=== PATIENT | female | born 1960 | race Caucasian/White ===

== ENCOUNTER 2019-03-14 17:23 | Emergency (ER) | payer MEDICAID ==
[~2019-03-14] VITALS: Ht 170.2 cm; Wt 96.6 kg
[~2019-03-14 17:23] MED LIST: AMLO10TA7 PO; ARIP2TAB3 PO; CHOL50006 PO; CITA20TA16 PO; CLON0.1T PO; DICL75TA5 PO; DILT120C31 PO; DOCU-270 PO; FERR325C PO; GABA-534 PO; METF-440 PO; METO5TAB87; PIOG15TA8 PO; POTA8TAB3 PO; PROP40TA7 PO; SIMV-46 PO; SUMA50TA PO; THIA50TA2 PO; TRAM50TA2 PO; VIT B-6 PO
--- NOTE | 2019-03-14 17:32 | NUR ---
PT BIB DAUGHTER C/O ABDOMINAL PAIN RADIATE TO R LOWER BACK. PT IS AAOX4, NOT IN RESPIRATORY DISTRESS, HOOKED TO MONITOR, KEPT RESTED AND COMFORTABLE, WILL CONTINUE TO MONITOR.
--- NOTE | 2019-03-14 17:39 | NUR ---
URINE SPECIMEN COLLECTED AND SENT TO LAB.
--- NOTE | 2019-03-14 17:42 | NUR ---
SEEN AND EXAMINED BY DR. MALONE.
--- NOTE | 2019-03-14 17:50 | NUR ---
IV LINE ESTABLISHED, BLOOD DRAWN AND SENT TO LAB.
[2019-03-14 17:51] LABS: APPEARANCE,URINE Slightly Cloudy (CLEAR); BILIRUBIN,URINE Negative (NEGATIVE); BLOOD, URINE Large Ery/uL (NEGATIVE); COLOR,URINE Dark (YELLOW); KETONES,URINE Negative (NEGATIVE); LEUKOCYTE ESTERASE ,URINE Trace (NEGATIVE); NITRITE, URINE Negative (NEGATIVE); PH,URINE 6.5 (5.0-8.0); PROTEIN,URINE 100 mg/dl (NEGATIVE); UGLUCOSE Negative (NEGATIVE); UROBILINOGEN,URINE 0.2 EU/dL (0.2)
[2019-03-14] MEDS ORDERED: ONDANSETRON HCL/PF 4 MG/2 ML VIAL ONE (17:52)
[2019-03-14] MEDS ORDERED: HYDROMORPHONE 1 MG/1 ML DISP.SYRIN ONE ×2 (17:53→20:22)
[2019-03-14 17:54] LABS: BASOPHILS # (AUTO) 0.1 /CMM (0.0-0.2); BASOPHILS % (AUTO) 0.8 % (0.0-2.0); HEMATOCRIT 41 % (33-45); HEMOGLOBIN 13.5 g/dL (11.5-14.8); LYMPHOCYTES # (AUTO) 3.3 /CMM (0.8-4.8); LYMPHOCYTES % (AUTO) 40.7 % (20.0-44.0); MEAN CORPUSCULAR HGB CONC 33 g/dl (31.0-36.0); MEAN CORPUSCULAR VOLUME 89 fL (82-100); MONOCYTES # (AUTO) 0.6 /CMM (0.1-1.30); MONOCYTES % (AUTO) 6.8 % (2.0-12.0); NEUTROPHILS # (AUTO) 4.1 /CMM (1.8-8.9); NEUTROPHILS % (AUTO) 50.7 % (43.0-81.0); PLATELET COUNT (AUTO) 298 /CMM (150-450); RED BLOOD CELL COUNT(AUTO) 4.62 MIL/uL (4.0-5.2); WHITE BLOOD COUNT (AUTO) 8.1 K/uL (4.3-11.0)
[2019-03-14 18:00] LABS: BACTERIA,URINE Few /HPF (None Seen); RBC,URINE 21-50 /HPF (0-2); SQUAMOUS EPITHELIAL CELL,UR Moderate /HPF (None Seen)
[2019-03-14] MEDS ORDERED: ONDANSETRON HCL/PF 4 MG/2 ML VIAL IVP ONE (18:00)
[2019-03-14] MEDS ORDERED: IV NS 0.9% 1,000 ML BAG IV ONE (18:00)
[2019-03-14] MEDS ORDERED: HYDROMORPHONE INJ 2 MG/ML DISP.SYRIN IV ONE ×2 (18:00→20:30)
[2019-03-14 18:08] LABS: ALANINE AMINOTRANSFERASE 49 U/L (12-78); ALKALINE PHOSPHATASE 69 U/L (46-116); ASPARTATE AMINOTRANSFERASE 26 U/L (15-37); BILIRUBIN,TOTAL 0.2 mg/dL (0.2-1.0); LIPASE 196 U/L (73-393); TOTAL PROTEIN, SERUM 7.6 g/dL (6.4-8.2)
[2019-03-14 18:13] LABS: CALCIUM, SERUM 10.4 mg/dL (8.5-10.1); CARBON DIOXIDE 22 mmol/L (21-32); CHLORIDE 105 mmol/L (98-107); CREATININE 0.6 mg/dL (0.6-1.3); GLUCOSE 107 mg/dL (74-106); POTASSIUM 3.8 mmol/L (3.5-5.1); SODIUM SERUM 139 mmol/L (136-145); UREA NITROGEN, BLOOD 13 mg/dL (7-18)
--- NOTE | 2019-03-14 18:17 | NUR ---
PT IS WHEELED TO CT SCAN VIA [facility].
--- NOTE | 2019-03-14 18:55 | NUR ---
CALLED DR RAMIREZ, LEFT VOICEMAIL.
--- NOTE | 2019-03-14 19:04 | NUR ---
Jcarlos hayes in ED - 03/14/19 at 1908 by JULIA ELEANOR HENRY FOR ADMISSION
[2019-03-14] MEDS ORDERED: PANT40TA2 PO (19:09)
[2019-03-14] MEDS ORDERED: ATOR10TA PO (19:09)
[2019-03-14] MEDS ORDERED: LOSA1TAB39 PO (19:09)
[2019-03-14] MEDS ORDERED: FENO145T21 PO (19:09)
[2019-03-14] MEDS ORDERED: SERT50TA12 PO (19:09)
[2019-03-14] MEDS ORDERED: ASPI-1169 PO (19:09)
[2019-03-14] MEDS ORDERED: ERGO500014 PO (19:09)
[2019-03-14] MEDS ORDERED: IBUP-1955 PO (19:09)
--- NOTE | 2019-03-14 19:59 | NUR ---
SPOKE WITH [facility] FOR CLINICAL INFO. PT IS GOING TO [facility]. WILL CALL BACK FOR ADMITTING AND TRANSFER INFORMATION
--- NOTE | 2019-03-14 20:05 | NUR ---
DR MALONE SPEAKING WITH DR WOODS, PT PENDING ADMISSION TO [facility]
--- NOTE | 2019-03-14 21:02 | NUR ---
[facility] 45 MIN ETA
--- NOTE | 2019-03-14 21:48 | NUR ---
[facility] DIRECT ADMIT TO ROOM 306-B, MAX CALHOUN FOR REPORT [phone]
--- NOTE | 2019-03-14 22:07 | NUR ---
REPORT GIVEN TO MAX CALHOUN AT [facility] FOR [facility]. [facility] AT BEDSIDE FOR TRANSPORT, REPORT GIVEN WELL
--- NOTE | 2019-03-14 22:14 | NUR ---
DAUGHTER UPDATED THAT MOTHER IS LEAVING FOR [facility]
[2019-03-14 22:15] VITALS: BP 139/74
--- NOTE | 2019-03-14 22:16 | NUR ---
PT ON [facility] TO [facility]. NAD NOTED
== END 2019-03-14 22:18 | disposition short-term general hospital (02) ==
LOC: ER 17:23
DX: N13.4 Hydroureter (principal); N13.30 Unspecified hydronephrosis; N20.0 Calculus of kidney; I10 Essential (primary) hypertension; E11.9 Type 2 diabetes mellitus without complications; Z98.890 Other specified postprocedural states; Z79.899 Other long term (current) drug therapy; Z79.82 Long term (current) use of aspirin; Z79.84 Long term (current) use of oral hypoglycemic drugs
CPT/HCPCS: 36415; 71045; 74176; 80048; 80076; 81001; 83690; 84484; 85025; 93005; 96374; 96375; 96376; 99285; J1170 ×2; J2405; J7030; 81000-TC

== ENCOUNTER 2024-03-21 17:05 | Emergency (ER) | payer MEDICAID ==
[~2024-03-21] VITALS: Ht 152.4 cm; Wt 91.2 kg
[~2024-03-21 17:05] MED LIST changes: +AMLO-213 PO; -AMLO10TA7 PO; -ARIP2TAB3 PO; +ASPI-1169 PO; +ATOR10TA PO; -CHOL50006 PO; -CITA20TA16 PO; -DOCU-270 PO; +ERGO500014 PO; +FENO145T21 PO; -FERR325C PO; -GABA-534 PO; +IBUP-1955 PO; +LOSA1TAB39 PO; -METF-440 PO; -METO5TAB87; +PANT40TA2 PO; -PIOG15TA8 PO; -POTA8TAB3 PO; +SERT50TA12 PO; -SIMV-46 PO; -SUMA50TA PO; -THIA50TA2 PO; -VIT B-6 PO
[2024-03-21 17:14] VITALS: TEMP 97.9
[2024-03-21 17:47] LABS: BASOPHILS # (AUTO) 0.1 K/uL (0.0-0.2); BASOPHILS % (AUTO) 1.1 % (0.0-2.0); EOSINOPHILS # (AUTO) 0.1 K/uL (0.0-0.7); EOSINOPHILS % (AUTO) 0.6 % (0.0-6.0); HEMATOCRIT 40 % (33-45); HEMOGLOBIN 13.2 g/dL (11.5-14.8); LYMPHOCYTES # (AUTO) 2.6 K/uL (0.8-4.8); LYMPHOCYTES % (AUTO) 31.5 % (20.0-44.0); MEAN CORPUSCULAR HEMOGLOBIN 29 PG (26.0-33.0); MEAN CORPUSCULAR HGB CONC 33 g/dl (31.0-36.0); MEAN CORPUSCULAR VOLUME 88 fL (82-100); MONOCYTES # (AUTO) 0.5 K/uL (0.1-1.30); MONOCYTES % (AUTO) 5.6 % (2.0-12.0); NEUTROPHILS # (AUTO) 5.1 K/uL (1.8-8.9); NEUTROPHILS % (AUTO) 61.2 % (43.0-81.0); PLATELET COUNT (AUTO) 314 K/uL (150-450); RED BLOOD CELL COUNT(AUTO) 4.57 MIL/uL (4.0-5.2); RED CELL DISTRIBUTION WIDTH 14.7 % (11.5-15.0); WHITE BLOOD COUNT (AUTO) 8.3 K/uL (4.3-11.0)
[2024-03-21 18:01] LABS: CALCIUM, SERUM 10.7 mg/dL (8.5-10.1); CARBON DIOXIDE 20 mmol/L (21-32); CHLORIDE 107 mmol/L (98-107); CREATININE 0.8 mg/dL (0.6-1.3); GLUCOSE 114 mg/dL (74-106); POTASSIUM 3.7 mmol/L (3.5-5.1); SODIUM SERUM 140 mmol/L (136-145); UREA NITROGEN, BLOOD 15 mg/dL (7-18)
[2024-03-21 18:14] LABS: ALANINE AMINOTRANSFERASE 44 U/L (12-78); ALBUMIN 4.2 g/dL (3.4-5.0); ALKALINE PHOSPHATASE 50 U/L (46-116); ASPARTATE AMINOTRANSFERASE 25 U/L (15-37); BILIRUBIN,DIRECT 0.1 mg/dL (0.0-0.2); BILIRUBIN,TOTAL 0.4 mg/dL (0.2-1.0); NT-PRO BNP 73 pg/mL (0-125); TOTAL PROTEIN, SERUM 7.6 g/dL (6.4-8.2)
[2024-03-21] MEDS ORDERED: MORPHINE SULFATE INJ 2 MG/ML DISP.SYRIN ONE (18:53)
[2024-03-21] MEDS: MORPHINE SULFATE INJ 2 MG/ML DISP.SYRIN IV ONE (19:01)
[2024-03-21 20:22] VITALS: BP 148/86; O2SAT 100
== END 2024-03-21 20:23 | disposition left against medical advice (07) ==
LOC: ER 17:11
DX: R55 Syncope and collapse (principal); R42 Dizziness and giddiness; M25.531 Pain in right wrist; M25.532 Pain in left wrist; M79.601 Pain in right arm; M79.602 Pain in left arm; M79.641 Pain in right hand; M79.642 Pain in left hand; E11.9 Type 2 diabetes mellitus without complications; E78.5 Hyperlipidemia, unspecified; G44.309 Post-traumatic headache, unspecified, not intractable; I10 Essential (primary) hypertension; Z79.82 Long term (current) use of aspirin; Z79.899 Other long term (current) drug therapy
CPT/HCPCS: 25605; 99285; 71045; 73090; 73130 ×2; 72125; 70450; 85025; 80048; 80076; 36415; 84484 ×2; 83880; 82962; 96374; 93005; J2270